=== PATIENT | female | born 1965 | race Caucasian/White ===

== ENCOUNTER 2021-03-11 09:07 | Day surgery (SDC) | payer MEDICARE, MEDICAID ==
[2021-03-11] VITALS (7 sets, daily range): BP systolic 114–124; BP diastolic 74–86
[~2021-03-11] VITALS: Ht 154.9 cm; Wt 80.3 kg
[2021-03-11] MEDS ORDERED: albumin 25% 100mL bottle x 1 IV PRN (09:40)
[2021-03-11] MEDS ORDERED: SPIR100T5 PO (10:38)
[2021-03-11] MEDS ORDERED: FURO-149 PO (10:38)
[2021-03-11] MEDS ORDERED: NORT25CA PO (10:38)
[2021-03-11] MEDS ORDERED: POTASSIUM CL PO (10:38)
[2021-03-11] MEDS ORDERED: RIFA550T PO (10:38)
[2021-03-11] MEDS ORDERED: PANT-47 PO (10:38)
[2021-03-11] MEDS ORDERED: [UNRECOGNIZED DRUG - OTHER] EACHEYE (10:38)
[2021-03-11] MEDS ORDERED: CARVEDILOL 3.125 MG PO (10:38)
[2021-03-11] MEDS ORDERED: BISA-155 PO (10:38)
[2021-03-11] MEDS ORDERED: LIDOcaine 1% 30ml preserv. free vial SQ STA (11:09)
== END 2021-03-11 12:10 | disposition home or self-care (01) ==
LOC: SSTAY O 09:07
PROVIDERS: ATTEND Radiology Diagnostic Radiology
DX: R18.8 Other ascites (principal); R14.0 Abdominal distension (gaseous); G89.29 Other chronic pain; K74.60 Unspecified cirrhosis of liver; F10.20 Alcohol dependence, uncomplicated; D63.8 Anemia in other chronic diseases classified elsewhere; F15.90 Other stimulant use, unspecified, uncomplicated; F17.210 Nicotine dependence, cigarettes, uncomplicated; Z79.899 Other long term (current) drug therapy
CPT/HCPCS: 49083; J3490; P9047

== ENCOUNTER 2021-04-22 08:27 | Day surgery (SDC) | payer MEDICARE, MEDICAID ==
[2021-04-22] VITALS (9 sets, daily range): BP systolic 110–123; BP diastolic 62–86
[~2021-04-22] VITALS: Ht 154.9 cm; Wt 80.6 kg
[~2021-04-22 08:27] MED LIST: BISA-155 PO; CARVEDILOL 3.125 MG PO; FURO-149 PO; NORT25CA PO; PANT-47 PO; POTASSIUM CL PO; RIFA550T PO; SPIR100T5 PO; [UNRECOGNIZED DRUG - OTHER] EACHEYE
[2021-04-22] MEDS ORDERED: ALBU18HF2 INH (09:18)
[2021-04-22] MEDS ORDERED: HYDR-3972 PO (09:18)
[2021-04-22] MEDS ORDERED: ONDA-103 PO (09:18)
[2021-04-22] MEDS ORDERED: ACET-2778 PO (09:18)
[2021-04-22] MEDS ORDERED: LACT10SO3 PO (09:18)
[2021-04-22] MEDS ORDERED: albumin (human) 25% 100ml IV 100 ML IV PRN (10:30)
== END 2021-04-22 11:45 | disposition home or self-care (01) ==
LOC: SSTAY O 08:27
PROVIDERS: ATTEND Radiology Vascular & Interventional Radiology
DX: R18.8 Other ascites (principal); R14.0 Abdominal distension (gaseous); G89.29 Other chronic pain; K74.60 Unspecified cirrhosis of liver; D63.8 Anemia in other chronic diseases classified elsewhere; F10.20 Alcohol dependence, uncomplicated; F15.90 Other stimulant use, unspecified, uncomplicated; F12.90 Cannabis use, unspecified, uncomplicated; F17.290 Nicotine dependence, other tobacco product, uncomplicated; Z79.899 Other long term (current) drug therapy; Z86.19 Personal history of other infectious and parasitic diseases
CPT/HCPCS: 49083; P9047

== ENCOUNTER 2021-06-06 18:17 | Emergency (ER) | payer MEDICARE, MEDICAID ==
[~2021-06-06] VITALS: Ht 154.9 cm; Wt 61.4 kg
[~2021-06-06 18:17] MED LIST changes: +ACET-2778 PO; +ALBU18HF2 INH; +HYDR-3972 PO; +LACT10SO3 PO; +ONDA-103 PO
[2021-06-06 18:21] VITALS: BP 109/64
--- NOTE | 2021-06-06 23:11 | NUR ---
not in lobby
== END 2021-06-07 00:07 | disposition left against medical advice (07) ==
LOC: ER 18:18
DX: Z53.21 Procedure and treatment not carried out due to patient leaving prior to being seen by health care provider (principal)

== ENCOUNTER 2021-07-02 07:38 | Day surgery (SDC) | payer MEDICARE, MEDICAID ==
[~2021-07-02] VITALS: Ht 154.9 cm; Wt 76.3 kg
[2021-07-02] VITALS (8 sets, daily range): BP systolic 87–125; BP diastolic 50–65
[~2021-07-02 07:38] MED LIST changes: +LIDOcaine 1%/PF 5ML 10 MG/ML VIAL IJ ONE
[2021-07-02] MEDS ORDERED: normal saline 1000ml 1,000 ML IV PRN (08:05)
[2021-07-02] MEDS: albumin 25% 100mL bottle x 1 IV PRN ×2 (09:07→10:54)
== END 2021-07-02 12:00 | disposition home or self-care (01) ==
LOC: SSTAY O 07:38
PROVIDERS: ATTEND Radiology Vascular & Interventional Radiology
DX: R18.8 Other ascites (principal); R14.0 Abdominal distension (gaseous); G89.29 Other chronic pain; K74.60 Unspecified cirrhosis of liver; K72.90 Hepatic failure, unspecified without coma; D63.8 Anemia in other chronic diseases classified elsewhere; F15.90 Other stimulant use, unspecified, uncomplicated; F10.20 Alcohol dependence, uncomplicated; F17.290 Nicotine dependence, other tobacco product, uncomplicated; Z86.19 Personal history of other infectious and parasitic diseases; Z79.899 Other long term (current) drug therapy
CPT/HCPCS: 49083; J3490; P9047

== ENCOUNTER 2022-04-28 11:24 | Day surgery (SDC) | payer MEDICARE, MEDICAID ==
[2022-04-28] VITALS (10 sets, daily range): BP systolic 103–139; BP diastolic 56–92
[~2022-04-28] VITALS: Ht 154.9 cm; Wt 72.3 kg
[~2022-04-28 11:24] MED LIST changes: -HYDR-3972 PO; -LIDOcaine 1%/PF 5ML 10 MG/ML VIAL IJ ONE
[2022-04-28 12:15] LABS: BASOPHILS # (AUTO) 0.1 X10'3 (0-0.2); BASOPHILS % (AUTO) 1.8 % (0-1); EOSINOPHILS # (AUTO) 0.2 X10'3 (0-0.9); EOSINOPHILS % (AUTO) 5.9 % (0-6); HEMATOCRIT 33.6 % (35.0-45.0); HEMOGLOBIN 11.3 g/dl (12.0-16.0); LYMPHOCYTES # (AUTO) 0.4 X10'3 (1.1-4.8); LYMPHOCYTES % (AUTO) 15.1 % (21-51); MEAN CORPUSCULAR HEMOGLOBIN 30.3 PG (27.0-31.0); MEAN CORPUSCULAR HGB CONC 33.5 g/dL (33.0-36.5); MEAN CORPUSCULAR VOLUME 90.4 FL (78-98); MEAN PLATELET VOLUME 7.2 FL (7.4-10.4); MONOCYTES # (AUTO) 0.5 X10'3 (0-0.9); MONOCYTES % (AUTO) 16.1 % (2-12); NEUTROPHILS # (AUTO) 1.8 X10'3 (1.8-7.7); NEUTROPHILS % (AUTO) 61.1 % (42-75); PLATELET COUNT 277 X10'3 (140-440); RED BLOOD COUNT 3.72 X10'6 (4.20-5.60); RED CELL DISTRIBUTION WIDTH 13.3 % (11.5-14.5)
[2022-04-28] MEDS ORDERED: LOPE1TAB46 PO (12:33)
[2022-04-28] MEDS ORDERED: PRED5TAB PO (12:33)
[2022-04-28] MEDS ORDERED: TACR1CAP24 PO (12:33)
[2022-04-28] MEDS ORDERED: MYCO500T5 PO (12:33)
[2022-04-28] MEDS ORDERED: URSO300C2 (12:33)
[2022-04-28] MEDS ORDERED: ASPI-1265 PO (12:33)
[2022-04-28] MEDS ORDERED: fentaNYL/PF 50MCG/1 ML 2ML syringe ONE (13:10)
[2022-04-28] MEDS ORDERED: midazolam 1 mg/ML 2ml injection ONE (13:10)
[2022-04-28] MEDS ORDERED: LIDOcaine 1% 30ml preserv. free vial ONE (13:10)
[2022-04-28 13:19] LABS: TOTAL CELLS COUNTED 100
[2022-04-28 13:20] LABS: PLATELET ESTIMATE NORMAL
[2022-04-28] MEDS ORDERED: normal saline 1000ml 1,000 ML IV SCH (13:40)
[2022-04-28] MEDS ORDERED: HYDROcodone/acetaminophen 5mg/325mg tablet PO PRN (13:40)
== END 2022-04-28 15:35 | disposition home or self-care (01) ==
LOC: SSTAY O 11:24
PROVIDERS: ATTEND Radiology Vascular & Interventional Radiology
DX: R74.01 Elevation of levels of liver transaminase levels (principal); T86.43 Liver transplant infection; B19.20 Unspecified viral hepatitis C without hepatic coma; Z79.82 Long term (current) use of aspirin; Z79.899 Other long term (current) drug therapy; Y83.0 Surgical operation with transplant of whole organ as the cause of abnormal reaction of the patient, or of later complication, without mention of misadventure at the time of the procedure
CPT/HCPCS: 36415; 47000; 76705; 76942; 85025; 85610; J2250; J3010; J3490; J7030; 85007; 99152; 99153; A4620

== ENCOUNTER 2024-11-26 14:06 | Outpatient (CLI) | payer MEDICARE, MEDICAID ==
[~2024-11-26 14:06] MED LIST changes: -ACET-2778 PO; -ALBU18HF2 INH; +ASPI-1265 PO; -BISA-155 PO; -CARVEDILOL 3.125 MG PO; -FURO-149 PO; -LACT10SO3 PO; +LOPE1TAB46 PO; +MYCO500T5 PO; -ONDA-103 PO; -POTASSIUM CL PO; +PRED5TAB PO; -RIFA550T PO; -SPIR100T5 PO; +TACR1CAP24 PO; +URSO300C2; -[UNRECOGNIZED DRUG - OTHER] EACHEYE
--- NOTE | 2024-11-26 15:25 | RADIOLOGY REPORT ---
Date: 11/26/2024 02:44 PM Examination: DI ABDOMEN,SINGLE VIEW(KUB) History: CHRONIC DIARRHEA Comparison: None TECHNIQUE: Frontal views of the abdomen was obtained. FINDINGS: Prominent loops of small bowel in the left hemiabdomen. Large stool burden. The lung bases are unremarkable. No acute osseous abnormality identified. IMPRESSION: Nonobstructive bowel gas pattern. Large stool burden. Prominent loops of small bowel in the left hemiabdomen.
--- NOTE | 2024-11-26 15:51 | RADIOLOGY REPORT ---
Procedure: CT CT CHEST LOW DOSE Reason for study/Clinical History: NICOTINE DEPENDENCE COMPARISON: None TECHNIQUE: Multidetector CT of the chest was performed from the lung apices to the upper abdomen without the use of intravenous contract. Axial, coronal and sagittal multiplanar reformats were performed. Radiation Dose Information: CT Dose: CTDI volume is 2.8 mGy. Dose-length product is 79 mGy*cm The dose indicators for CT are the volume Computed Tomography (CT) Dose Index (CTDIvol) and the Dose Length Product (DLP), and are measured in units of mGy and mGy-cm, respectively. These indicators are not patient dose, but values generated from the CT scanner acquisition factors. The report includes radiation exposure data for exposures received during this examination. FINDINGS: Lower neck: Normal thyroid. Lungs: No focal consolidation. Dependent atelectasis. Elevation of the left hemidiaphragm. No suspicious pulmonary nodules Heart/Vascular Structures: Moderate single-vessel coronary artery disease. Lymph Nodes: No adenopathy Pleura: No pleural effusion or significant pneumothorax. Musculoskeletal: No acute osseous abnormality. Soft tissues: Normal. Upper abdomen: Limited portions of the upper abdomen are unremarkable. IMPRESSION: No suspicious pulmonary nodule. LUNG RADS Category 1: Continue annual screening with LDCT
== END 2024-11-26 23:59 | disposition home or self-care (01) ==
LOC: RAD 14:06
PROVIDERS: ATTEND Student in an Organized Health Care Education/Training Program
DX: Z12.2 Encounter for screening for malignant neoplasm of respiratory organs (principal); J98.11 Atelectasis; F17.210 Nicotine dependence, cigarettes, uncomplicated; Q79.1 Other congenital malformations of diaphragm; I25.10 Atherosclerotic heart disease of native coronary artery without angina pectoris
CPT/HCPCS: 74018